=== PATIENT | male | born 1975 | race Caucasian/White ===

== ENCOUNTER 2017-03-26 21:49 | Emergency (ER) | payer OTHER ==
[~2017-03-26] VITALS: Ht 180.3 cm; Wt 90.7 kg
[~2017-03-26 21:49] MED LIST: AMOXICILLIN500 MG PO; ATARAX25 MG PO; AUGMENTIN 875-875 MG PO; BLEPH-10 15 ML15 ML OP; CLARITIN10 MG PO; CLEOCIN150 MG PO; DARVOCET N 1001 TAB PO; DIFLUCAN100 MG PO; DOXYCYCLINE MO100 MG PO; FLEXERIL10 MG PO; HYDROCODONE BIT1 T11 PO; IBU800 M1 PO; KEFLEX500 MG PO; KENALOG0.1% TP; LOTRISONE 0.05%1 CRE TP; MEDROL DOSEPAK4 MG PO; MOTRIN600 MG PO; Motrin,Rufen800 MG PO; NAPROSYN500 MG PO; NKHM; PHENERGAN W/ DE30 ML PO; PHENERGAN W/DM120 ML PO; PREDNICOT20 MG PO; PREDNISONE10 MG PO; PROAIR HFA0.09 MG/AC INH; ROBITUSSIN DAC PO; SILVADENE,SSD C50 GM PO; TOBRADEX 0.1%-0.5 ML OPH; TYLENOL SINUS C PO; ULTRAM50 MG PO; VIBRAMYCIN100 MG PO; VICODIN 500 MG-1 TAB PO; VOLTAREN 2.5 M2.5 ML OP; ZANTAC150 MG PO
[2017-03-26] MEDS ORDERED: AUGMENTIN 875875 MG PO (22:44)
[2017-03-26] MEDS ORDERED: ZYRTEC10 MG PO (22:44)
== END 2017-03-26 22:44 | disposition home or self-care (01) ==
LOC: ED 21:49
DX: J01.80 Other acute sinusitis (principal); R11.2 Nausea with vomiting, unspecified; H57.8 Other specified disorders of eye and adnexa; Z88.1 Allergy status to other antibiotic agents; Z88.2 Allergy status to sulfonamides; Z88.8 Allergy status to other drugs, medicaments and biological substances

== ENCOUNTER → 2017-11-24 | Outpatient (CLI) | payer OTHER ==
[~2017-11-24] MED LIST changes: +AUGMENTIN 875875 MG PO; +ZYRTEC10 MG PO
== END | disposition home or self-care (01) ==
LOC: RAD 10:24
DX: M25.461 Effusion, right knee (principal)

== ENCOUNTER 2018-01-24 10:32 | Emergency (ER) | payer OTHER ==
[~2018-01-24] VITALS: Ht 180.3 cm; Wt 99.8 kg
== END 2018-01-24 11:44 | disposition home or self-care (01) ==
LOC: ED 10:32
DX: L51.9 Erythema multiforme, unspecified (principal); Z88.2 Allergy status to sulfonamides; Z88.8 Allergy status to other drugs, medicaments and biological substances; Z79.899 Other long term (current) drug therapy